=== PATIENT | female | born 1940 | race Caucasian/White ===

== ENCOUNTER 2018-02-17 20:00 | Outpatient (REF) | payer MEDICARE, OTHER, SELFPAY ==
[2018-02-17 22:52] LABS: Abs Immature Grans 0.02 k/cumm (0.0-0.09); Absolute Basophil Count 0.03 k/cumm (0.0-0.2); Absolute Eosinophil Count 0.17 k/cumm (0.0-0.7); Absolute Lymphocyte Count 1.26 k/cumm (1.2-3.4); Absolute Monocyte Count 0.53 k/cumm (0.11-0.7); Absolute Neutrophil Count 4.38 k/cumm (1.2-6.7); Basophils % 0.5; Eosinophils % 2.7; HCT 38.9 % (36.0-46.0); HGB 12.9 g/dL (12.0-15.5); Immature Grans % 0.3; Lymphocytes % 19.7; Mean Corp. HGB Concentration 33.2 g/dL (32.0-36.0); Mean Corpuscular Hemoglobin 31.1 pg (27.0-33.0); Mean Corpuscular Volume 93.7 fL (80-95); Mean Platelet Volume 9.8 fL (8.0-11.0); Monocytes % 8.3; Neutrophils % 68.5; Platelet Count 213 x1000/uL (130-400); RBC 4.15 m/cumm (4.00-5.20); RBC Distribution Width 13.2 % (11.7-14.6); White Blood Cell Count 6.39 k/cumm (4.4-10.8)
[2018-02-17 23:13] LABS: ALT 27 U/L (12-78); AST 28 U/L (15-37); Alkaline Phosphatase 84 U/L (46-116); Anion Gap 8.4 mmol/L (3-11); BUN 20 mg/dL (7-18); Bilirubin, Total 0.4 mg/dL (0.2-1.0); CO2 26.6 mmol/L (21.0-32.0); Chloride 106 mmol/L (98-107); Cholesterol 218 mg/dL (50-200); Glucose 87 mg/dL (70-100); HDL Cholesterol 57 mg/dL (40-60); LDL CHOLESTEROL 136 mg/dL (<100); Potassium 4.7 mmol/L (3.5-5.1); Sodium 141 mmol/L (136-145); Total Protein 7.2 g/dL (6.4-8.2); Triglyceride 216 mg/dL (30-150)
== END 2018-02-17 20:20 ==
LOC: NCHCN 20:00
PROVIDERS: PCP Family Medicine; Visit Provider Nurse Practitioner Family
DX: M13.0 Polyarthritis, unspecified (principal); E66.9 Obesity, unspecified; Z79.899 Other long term (current) drug therapy; Z13.220 Encounter for screening for lipoid disorders
CPT/HCPCS: 80053; 80061; 83721; 85025

== ENCOUNTER 2019-10-09 21:11 | Outpatient (REF) | payer MEDICARE, OTHER, SELFPAY | END 2019-10-09 21:31 | LOC: NCHCN 21:11 | PROVIDERS: PCP Family Medicine; Visit Provider Nurse Practitioner Family | DX: L02.425 Furuncle of right lower limb (principal) | CPT/HCPCS: 87070; 87205 ==

== ENCOUNTER 2020-11-06 15:46 | Outpatient (REF) | payer MEDICARE, OTHER, SELFPAY ==
[2020-11-06 21:38] LABS: Abs Immature Grans 0.03 10^3/uL (0.0-0.06); Absolute Basophil Count 0.04 10^3/uL (0.0-0.2); Absolute Eosinophil Count 0.13 10^3/uL (0.0-0.7); Absolute Lymphocyte Count 1.03 10^3/uL (1.2-3.4); Absolute Monocyte Count 0.71 10^3/uL (0.1-0.8); Absolute Neutrophil Count 5.18 10^3/uL (1.2-6.7); Basophils % 0.6; Eosinophils % 1.8; HCT 35.8 % (36.0-46.0); HGB 11.2 g/dL (11.2-15.7); Immature Grans % 0.4; Lymphocytes % 14.5; MCH 28.6 pg (27.0-33.0); MCHC 31.3 % (32.0-36.0); MCV 91.3 fL (80-95); MPV 9.6 fL (8.0-11.0); Neutrophils % 72.7; Nucleated RBC 0 %; Platelet Count 291 10^3/uL (130-400); RBC 3.92 10^6/uL (3.93-5.22); RDW 13.1 % (11.7-14.6); RDW-SD 43.3 fL; WBC 7.12 10^3/uL (4.4-10.8)
[2020-11-06 21:56] LABS: Anion Gap 10.5 mmol/L (3-11); BUN 14 mg/dL (7-18); CO2 26.5 mmol/L (21.0-32.0); CREATININE 0.6 mg/dL (0.55-1.02); Calcium 9.5 mg/dL (8.5-10.1); Chloride 105 mmol/L (98-107); Glucose 95 mg/dL (74-106); Potassium 4.3 mmol/L (3.5-5.1); Sodium 142 mmol/L (136-145)
== END 2020-11-06 15:47 | disposition home or self-care (01) ==
LOC: NCHCN 15:46
PROVIDERS: PCP Family Medicine; Visit Provider Nurse Practitioner Community Health
DX: K59.00 Constipation, unspecified (principal); E66.9 Obesity, unspecified; M54.89 Other dorsalgia; Z86.2 Personal history of diseases of the blood and blood-forming organs and certain disorders involving the immune mechanism
CPT/HCPCS: 80048; 85025

== ENCOUNTER 2021-03-26 08:18 | Outpatient (REF) | payer SELFPAY ==
--- OUTSIDE RECORDS SUMMARY | 2021-03-26 08:53 | XMS_ITS | CCD ---
:1940 Author Care Team Providers Name Role Phone ROZENDAAL Attending Physician Unavailable Vital Signs Unknown or Not Available. Allergies Allergy Code Allergy Type Reaction Status No Known Drug Allergies 0 No known drug allergies Active Procedures Unknown or Not Available. History of Immunizations Unknown or Not Available. Problems Unknown or Not Available. Results Unknown or Not Available. Active Medications Medication Code Dose Units Frequency Route Modification Start Date/Time Calcium 600 [id number] 600 MILLIGRAMS DAILY ORAL 4 600MG Oral 14:06 Tablet Prescription Detail TAKE 600 MILLIGRAMS ORAL SABRINA LY Medications Administered During Visit Unknown or Not Available. Encounters Encounter Diagnosis Diagnosis Code Start Date Collapsed vertebra, not elsewhere classified, [id number] 01/28/2021 thoracic region, subsequent encounter for fracture with routine healing Social History Smoking Status Code Start Date End Date Never smoker [id number] Patient Decision Aids Unknown or Not Available. Discharge Instructions You were admitted to [facility] 01 on 01/28/2021 11:26 with a principal diagnosis of Collapsed vert, NEC, thor r egion, subs for fx w routn heal You were discharged from [facility] 01 on 03/13/2021 11:26 Should you have any questions prior to d ischarge, please contact a member of your healthcare team. If you have left the ho spital and have any questions, please contact your primary care physician. Chief Complaint and Reason For Visit Unknown or Not Available. Function Status Unknown or Not Available. Plan of Care Unknown or Not Available. Referral/Transition of Care Unknown or Not Available.
--- OUTSIDE RECORDS SUMMARY | 2021-03-26 08:53 | XMS_ITS | CCD ---
:1940 Author Care Team Providers Name Role Phone KACIE Attending Physician Unavailable Vital Signs Unknown or Not Available. Allergies Allergy Code Allergy Type Reaction Status No Known Drug Allergies 0 No known drug allergies Active Procedures Unknown or Not Available. History of Immunizations Unknown or Not Available. Problems Unknown or Not Available. Results Unknown or Not Available. Active Medications Medication Code Dose Units Frequency Route Modification Start Date/Time Calcium 600 [id number] 600 MILLIGRAMS DAILY ORAL 4 600MG Oral 14:06 Tablet Prescription Detail TAKE 600 MILLIGRAMS ORAL SABRINA LY Medications Administered During Visit Unknown or Not Available. Encounters Encounter Diagnosis Diagnosis Code Start Date Encounter for other specified aftercare [id number] 03/04/2021 Social History Smoking Status Code Start Date End Date Never smoker [id number] Patient Decision Aids Unknown or Not Available. Discharge Instructions You were admitted to [facility] 01 on 03/04/2021 11:09 with a principal diagnosis of Encounter for other specifi ed aftercare You were discharged from [facility] 01 on 03/04/2021 13:59 Should you have any questions prior to [...]
--- OUTSIDE RECORDS SUMMARY | 2021-03-26 08:53 | XMS_ITS | CCD ---
:1940 Author Care Team Providers Name Role Phone COTY TORRES S Attending Physician Unavailable Vital Signs Unknown or Not Available. Allergies Allergy Code Allergy Type Reaction Status No Known Drug Allergies 0 No known drug allergies Active Procedures Unknown or Not Available. History of Immunizations Unknown or Not Available. Problems Unknown or Not Available. Results Unknown or Not Available. Active Medications Medication Code Dose Units Frequency Route Modification Start Date/Time Calcium 600 [id number] 600 MILLIGRAMS DAILY ORAL 4 600MG Oral 14:06 Tablet Prescription Detail TAKE 600 MILLIGRAMS ORAL SABRINA LY Medications Administered During Visit Unknown or Not Available. Encounters Encounter Diagnosis Diagnosis Code Start Date Rectocele N816 12/02/2020 Social History Smoking Status Code Start Date End Date Never smoker [id number] Patient Decision Aids Unknown or Not Available. Discharge Instructions You were admitted to [facility] 01 on 12/02/2020 10:31 with a principal diagnosis of Rectocele You were discharged from [facility] 01 on 12/02/2020 10:31 Should you have any questions prior to [...]
--- OUTSIDE RECORDS SUMMARY | 2021-03-26 08:54 | XMS_ITS | CCD ---
[...] Frequency Route Modification Start Date/Time Calcium 600 [id number] 600 MILLIGRAMS DAILY ORAL 4 600MG Oral 14:06 Tablet Prescription Detail TAKE 600 MILLIGRAMS ORAL SABRINA LY Medications Administered During Visit Unknown or Not Available. Encounters Encounter Diagnosis Diagnosis Code Start Date Other forms of scoliosis, thoracic region [id number] 03/12/2021 Social History Smoking Status Code Start Date End Date Never smoker [id number] Patient Decision Aids Unknown or Not Available. Discharge Instructions You were admitted to [facility] 01 on 03/12/2021 13:46 with a principal diagnosis of Other forms of scoliosis, t horacic region You were discharged from [facility] on 03/12/2021 13:46 Should you have any questions prior to [...]
[2021-03-27 05:00] LABS: Vitamin D 25 Total 27.4 ng/mL (30-100)
== END 2021-03-26 08:19 | disposition home or self-care (01) ==
LOC: LBN 08:18
PROVIDERS: PCP Family Medicine; Visit Provider Internal Medicine
DX: R68.89 Other general symptoms and signs (principal)
CPT/HCPCS: 82306